=== PATIENT | male | born 1985 | race Two or more races ===

== ENCOUNTER 2025-01-06 06:53 | Emergency (ER) | payer SELFPAY ==
[~2025-01-06] VITALS: Ht 177.8 cm; Wt 93.0 kg
[2025-01-06 06:57] VITALS: BP 131/84; TEMP 98.7; O2SAT 98
== END 2025-01-06 08:10 | disposition left against medical advice (07) ==
LOC: ER 06:55
DX: R42 Dizziness and giddiness (principal); R06.02 Shortness of breath; Z60.2 Problems related to living alone